=== PATIENT | male | born 1955 | race Asian ===

== ENCOUNTER 2021-10-12 08:46 | Outpatient (CLI) | payer OTHER, SELFPAY ==
[2021-10-12 10:37] LABS: Cholesterol* 166 mg/dL (90-199); Glucose* 98 mg/dL (60-115); HDL Cholesterol* 67 mg/dL (>=40); LDL Cholesterol Calculated 90 mg/dL (<100); Triglycerides* 44 mg/dL (40-149)
[2021-10-12 11:03] LABS: PSA Screen* 0.72 ng/mL (0.10-4.00)
== END 2021-10-12 08:47 | disposition home or self-care (01) ==
PROVIDERS: PCP Family Medicine; Visit Provider Family Medicine
DX: Z00.00 Encounter for general adult medical examination without abnormal findings (principal); Z13.1 Encounter for screening for diabetes mellitus; Z12.5 Encounter for screening for malignant neoplasm of prostate; Z13.6 Encounter for screening for cardiovascular disorders
CPT/HCPCS: 80061; 82947; 84153

== ENCOUNTER 2023-01-10 08:38 | Outpatient (CLI) | payer MEDICARE, SELFPAY | END 2023-01-10 08:39 | disposition home or self-care (01) | PROVIDERS: PCP Family Medicine; Referring Provider Family Medicine; Visit Provider Family Medicine | DX: Z13.1 Encounter for screening for diabetes mellitus (principal); Z12.5 Encounter for screening for malignant neoplasm of prostate; Z13.6 Encounter for screening for cardiovascular disorders | CPT/HCPCS: 80061; 82947; 84153 ==

== ENCOUNTER 2023-10-23 09:52 | Outpatient (CLI) | payer MEDICARE, SELFPAY ==
--- OUTSIDE RECORDS SUMMARY | 2023-10-27 00:52 | XMS_ITS | Clinical Summary ---
Author Organization [facility] Address [address] [place] [address] Care Team Providers Care Matting Press Tender Name Role Phone Unavailable Primary Care Provider Unavailabl e Source Comments Patient records contain information from all sites at [facility]. For routine questions regarding patient records, call [phone] during business hours, M-F 8:00 AM - 5:00 PM Central Time. Record requests for emergency care only can be directed to [phone] at any time.[facility] Allergies No known active allergies Medications Medication Sig Dispensed Refills Start Date End Date Status mometasone (ELOCON) 0.1 % cream Apply sparingly to rash on arms and legs once daily on Saturdays and Sundays. Stop after 2 months 45 g 1 03/30/2020 Active Additional Information Patient not taking.Reported on 03/15/2023 Social History Tobacco Use Types Packs/Day Years Used Date Smoking Tobacco: Never Assessed [facility] Utilities Answer Date Recorded In the past 12 months has th e electric, gas, oil, or water company threatened to shut off services in your home? No 03/15/2023 Exercise Vital Sign Answer Date Recorde d On average, how many days pe r week do you engage in moderate to strenuous exercise (like a brisk walk)? 5 days Minutes of Exercise per Session Not on file 03/15/2023 Hunger Vital Sign Answer Date Recorded Within the past 12 months, y ou worried that your food would run out before you got the money to buy more. Never true 03/15/19 24 Within the past 12 months, t he food you bought just didn't last and you didn't have money to get more. Never true 03/15/2023 PRAPARE - Transportation Answer Date Re corded In the past 12 months, has l ack of transportation kept you from medical appointments or from getting medications? No 02/27 In the past 12 months, has l ack of transportation kept you from meetings, work, or from getting things needed for daily living? No 03/15/2023 Nutrition Answer Date Recorded Nutrition: EVOO Fat Source Unknown 03/15 On average, how many serving s of fruits and vegetables do you eat per day (serving size is equal to 1 cup or approximately the size of a tennis ball)? 5 or more 03/15/2023 Dental Answer Date Recorded Dental: Regular Dentist Yes 03/15/19 Housing Stability Answer Date Recorded What is your living situation today? I have a [facility] place to live 03/15/2023 Sex and Gender Information Value Date Recorded Sex Assigned at Male 03/15/2023 11:45 AM RESIDENTIAL CAREGIVER Gender Identity Male 03/15/2023 11:45 AM RESIDENTIAL CAREGIVER Sexual Orientation Straight 03/15/2023 11 :45 AM RESIDENTIAL CAREGIVER Last Filed Vital Signs Vital Sign Reading Time Taken Comments Blood Pressure 114/69 03/15/2023 12:43 PM RESIDENTIAL CAREGIVER Pulse 48 03/15/2023 12:43 PM RESIDENTIAL CAREGIVER Temperature - - Respiratory Rate - - Oxygen Saturation - - Inhaled Oxygen Concentration - - Weight 58.8 kg (129 lb 10.1 oz) 024 12:43 PM RESIDENTIAL CAREGIVER Height 171.4 cm (5' 7.48) 03/15/2023 1 2:43 PM RESIDENTIAL CAREGIVER Body Mass Index 20.02 03/15/2023 12:43 PM RESIDENTIAL CAREGIVER Plan of Treatment Health Maintenance Due Date Last Done Comments CT Colonography 1957 Cologuard 1957 Colonoscopy 1957 Colorectal Cancer Screening 1957 FIT 1957 Fasting Glucose for Diabetes Screening 1955 Hepatitis C Screening 1955 Depression Screening (Annual PHQ-2) 02/27/2023 Fall Risk Screen (Annual) 02/27/2023 COVID-19 Vaccine (2022-2 4 season) 2023 12/28/2022, 01/14/2022, 03/12/2021, Additional history exists Influenza Vaccine (#1) 2023 , 12/30/2021, 11/17/2020, Additional history exists DTaP,Tdap,and Td Vaccines (5 - Td or Tdap) 10/13/2031 10/12/2021, 06/07/2012, 06/01/2007, Additional history exists Zoster Vaccines Completed 02/08/2019, 10/23/2017 Pneumococcal vaccine (65+ years) Completed 10/18/19, 10/23/2017
--- OUTSIDE RECORDS SUMMARY | 2023-10-27 00:53 | XMS_ITS | Referral Summary ---
Author Organization [facility] Address [address] [place] [address] Care Team Providers Care Roof Truss Detailer Name Role Phone Unavailable Primary Care Provider Unavailabl e Source Comments Patient records contain information from all sites at [facility]. For routine questions regarding patient records, call [phone] during business hours, M-F 8:00 AM - 5:00 PM Central Time. Record requests for emergency care only can be directed to [phone] at any time.[facility] Allergies No known active allergies Medications Medication Sig Dispensed Refills Start Date End Date Status mometasone (ELOCON) 0.1 % cream Apply sparingly to rash on arms and legs once daily on Saturdays and Sundays. Stop after 2 months 45 g 1 03/30/2020 Active Additional Information Patient not taking.Reported on 03/15/2023 Social History Tobacco Use Types Packs/Day Years Used Date Smoking Tobacco: Never Assessed [facility] Utilities Answer Date Recorded In the past [...] your living situation today? I have a [facility] place to live 03/15/2023 Sex and Gender Information Value Date Recorded Sex Assigned at Male 03/15/2023 11:45 AM WINDER HELPER Gender Identity Male 03/15/2023 11:45 AM WINDER HELPER Sexual Orientation Straight 03/15/2023 11 :45 AM WINDER HELPER Last Filed Vital Signs Vital Sign Reading Time Taken Comments Blood Pressure 114/69 03/15/2023 12:43 PM WINDER HELPER Pulse 48 03/15/2023 12:43 PM WINDER HELPER Temperature - - Respiratory Rate - - Oxygen Saturation - - Inhaled Oxygen Concentration - - Weight 58.8 kg (129 lb 10.1 oz) 024 12:43 PM WINDER HELPER Height 171.4 cm (5' 7.48) 03/15/2023 1 2:43 PM WINDER HELPER Body Mass Index 20.02 03/15/2023 12:43 PM WINDER HELPER Plan of Treatment Not on file
--- OUTSIDE RECORDS SUMMARY | 2023-10-27 00:53 | XMS_ITS ---
Author Organization [facility] Address [address] [place] [address] Care Team Providers Care Vacuum Tester Cans Name Role Phone Unavailable Unavailable Unavailable Surgery Details Not on file Complications Check Surgery Details section. Procedure Estimated Blood Loss Check Surgery Details section. Procedure Findings Check Surgery Details section. Procedure Specimens Taken Check Surgery Details section.
== END 2023-10-23 09:53 | disposition home or self-care (01) ==
LOC: NFLDREF 10-27 00:51
PROVIDERS: PCP Family Medicine; Referring Provider Family Medicine; Visit Provider Family Medicine
DX: Z00.00 Encounter for general adult medical examination without abnormal findings (principal); L40.9 Psoriasis, unspecified; Z13.1 Encounter for screening for diabetes mellitus; Z12.5 Encounter for screening for malignant neoplasm of prostate; Z13.6 Encounter for screening for cardiovascular disorders
CPT/HCPCS: 80061; 82947; G0103

== ENCOUNTER 2024-10-29 09:11 | Outpatient (CLI) | payer MEDICARE, SELFPAY | END 2024-10-29 09:12 | disposition home or self-care (01) | PROVIDERS: PCP Family Medicine; Visit Provider Family Medicine | DX: Z00.00 Encounter for general adult medical examination without abnormal findings (principal); E78.5 Hyperlipidemia, unspecified; Z13.1 Encounter for screening for diabetes mellitus | CPT/HCPCS: 80061; 82947 ==